=== PATIENT | female | born 1980 | race African-American/Black ===

== ENCOUNTER 2017-08-29 13:01 | Emergency (ER) | payer OTHER ==
--- NOTE | 2017-08-29 13:32 | UC ---
Skin Complaint HPI - HPI Summary HPI Summary: left foot redness and swelling x 4 days bug bite left foot 4 days ago , + pain , itchy, redness and swelling , has been improving over the past 2 days no fever, no chills - History of Current Complaint Chief Complaint: UCSkin Time Seen by Provider: 08/29/17 13:13 Stated Complaint: BUG BITE Hx Obtained From: Patient Hx Last Menstrual Period: unknown due to control ?: No Onset/Duration: Sudden Onset, Lasting Days - 4, Still Present Timing: Constant Onset Severity: Moderate Current Severity: Moderate Pain Intensity: 0 Location: Foot (Left) Character: Swelling, Pruritus, Redness, Raised, Painful Aggravating Factor(s): Nothing, Touch Alleviating Factor(s): Cold, Antihistamines Associated Signs & Symptoms: Negative: Nausea, Vomiting, Fever, Chills, Throat Tightening, Rash, Tenderness, Red Streaks, Joint Swelling - Allergy/Home Medications Allergies/Adverse Reactions: Allergies Allergy/AdvReac Type Severity Reaction Status Date / Time No Known Allergies Allergy Verified 08/29/17 13:16 Home Medications: Home Medications Norethindrone-E.estradiol-Iron [Loestrin Fe 1-20 Tablet] 1 tab PO DAILY [History Confirmed 08/29/17] diphenhydrAMINE HCl [Benadryl Allergy 25 MG CAP] 1 cap PO Q6H PRN 08/29/17 [ History Confirmed 08/29/17] Review of Systems Constitutional: Negative Eyes: Negative ENT: Negative Respiratory: Negative Cardiovascular: Negative Is Patient Immunocompromised?: No All Other Systems Reviewed And Are Negative: Yes PMH/Surg Hx/FS Hx/Imm Hx Previously Healthy: Yes - Surgical History Surgical History: Yes Surgery Procedure, Year, and Place: leap procedure. left ovary removal - Family History Known Family History: Negative: Diabetes - Social History Alcohol Use: Rare Substance Use Type: None Smoking Status (MU): Never Smoked Tobacco Physical Exam Triage Information Reviewed: Yes Appearance: Well-Appearing, No Pain Distress, Well-Nourished Vital Signs: Initial Vital Signs Temp 99 F 08/29/17 13:13 Pulse 89 08/29/17 13:13 Resp 15 08/29/17 13:13 BP 110/68 08/29/17 13:13 Pulse Ox 98 06/05/18 13:13 Vital Signs Reviewed: Yes Eye Exam: Normal Eyes: Positive: Conjunctiva Clear ENT: Positive: Normal ENT inspection, Hearing grossly normal, Pharynx normal Neck: Positive: Supple, Nontender, No Lymphadenopathy Respiratory: Positive: Chest non-tender, Lungs clear, Normal breath sounds Cardiovascular: Positive: RRR, No Murmur, Pulses Normal Skin: Positive: Other - left foot: + papular lesion cw insect bite, + swelling, erythema, no tenderness Course/Dx - Diagnoses Provider Diagnoses: insect bite left foot Discharge - Sign-Out/Discharge Documenting (check all that apply): Discharge/Admit/Transfer - Discharge Plan Condition: Stable Disposition: HOME Patient Education Materials: Insect Bite or Sting (ED) Referrals: Non Staff,Doctor [Primary Care Provider] - If Needed Additional Instructions: bug bite left foot , improving and healing well not infection cont. with elevation, Benadryl , ice follow up if not better in 3 days - Billing Disposition and Condition Condition: STABLE Disposition: Home
== END 2017-08-29 13:30 | disposition home or self-care (01) ==
LOC: UCCORT 13:01
DX: S90.862A Insect bite (nonvenomous), left foot, initial encounter (principal); W57.XXXA Bitten or stung by nonvenomous insect and other nonvenomous arthropods, initial encounter; Y93.9 Activity, unspecified; Y92.9 Unspecified place or not applicable
CPT/HCPCS: 99201; G0463